=== PATIENT | male | born 1930 | race Caucasian/White ===

== ENCOUNTER → 2018-02-14 | Outpatient (CLI) | payer MEDICARE ==
[~2018-02-14] MED LIST: ALL300 PO; ASPI-1471 PO; CARV25TA78 PO; FURO-45 PO; LISI-362 PO; TAMS0.4C70 PO
--- NOTE | 2018-02-14 12:58 | RADIOLOGY IMAGING REPORT ---
[place] [facility] [place] Aamir Dominguez : 1930 MR: [id number] V: [id number] EXAM DATE: ORDERING PHYSICIAN: MIKAYLA STRAUSS TECHNOLOGIST: Location: [facility] Patient: Aamir Dominguez : 1930 Visit/Account:[id number] Date of Sevice: 02/14/2018 KIDNEYS EXAMINATION: Renal ultrasound. History: History of renal cysts bilaterally, incomplete bladder emptying COMPARISON STUDIES: February 02, 2017 FINDINGS: Kidneys: Right kidney- 11.5 x 6.8 x 5.2 cm Left kidney- 10.8 x 4.6 x 5.1 cm Uniform and symmetric blood flow in each kidney by Doppler ultrasound. Hydronephrosis: none Is 1.4 cm cyst upper pole the right kidney. There is a 2.6 cm cyst lateral aspect mid pole of the le ft kidney and a 2.3 cm cyst upper pole the left kidney Bladder: Prevoid volume 520 mL. Postvoid volume 448 mL. Bilateral ureteral jets are present Abdominal aorta and IVC: Aorta and IVC are patent by Doppler ultrasound. IMPRESSION: Only the 1.4 cm upper pole cyst right kidney is seen. The other two right renal cysts are no longer identified There is a 2.6 cm cyst lateral aspect mid pole the left kidney in addition to a 2.3 cm upper pole cys t Large postvoid bladder residual 440 mL. Report Dictated By: Saida Lemus MD at 02/14/2018 12:51 PM Report E-Signed By: Saida Lemus MD at 02/14/2018 12:54 PM WSN:[id number]
== END ==
LOC: US 04:18
PROVIDERS: ATTEND Urology
DX: N28.1 Cyst of kidney, acquired (principal); R33.9 Retention of urine, unspecified
CPT/HCPCS: 36415; 76705; 82565

== ENCOUNTER 2018-05-02 19:30 | Emergency (ER) | payer MEDICARE ==
--- NOTE | 2018-05-02 19:33 | ER Report ---
History and Physical Time Seen By MD: 19:32 HPI/ROS CHIEF COMPLAINT: Shortness of breath HISTORY OF PRESENT ILLNESS: 87-year-old male with a history of a bovine mitral valve replacement in 2009. Patient more recently has been seen with URI symptoms since last Tuesday. He was started on doxycycline and Zithromax for upper respiratory symptoms. He is continuing to cough and feel bad. He's had no chest pain. He notes shortness of breath and a cough of clear sputum. He notes some leg swelling. REVIEW OF SYSTEMS: Respiratory: As above Cardiovascular: No chest pain, no palpitations. Gastrointestinal: No vomiting, no abdominal pain. Musculoskeletal: No back pain. Allergies: Coded Allergies: No Known Drug Allergies (Unverified , 12/12/16) Home Meds Active Scripts Prednisone 10 Mg Tab (PREDNISONE 10 MG TAB) 10 Mg Tablet, 10 MG PO QDAY Y for REDUCE LUNG INFLAMMATION, #9 2 tabs daily for 3 dayS 1 tab daily for 3 days Prov:NARGIS CANSECO DO 05/02/18 Levofloxacin 500 Mg Tab (LEVAQUIN 500 MG TAB) 500 Mg Tablet, 500 MG PO DAILY for INFECTION, #6 TAB Prov:NARGIS CANSECO DO 05/02/18 Reported Medications L.acidoph & Paracasei,B.lactis (Probiotic) 1 Each Capsule 05/02/18 Sulfasalazine (SULFASALAZINE) 500 Mg Tablet, 500 MG PO 05/02/18 Omeprazole (OMEPRAZOLE) 20 Mg Capsule.dr, 1 CAP PO QDAY, CAP 05/02/18 Lisinopril (LISINOPRIL) 20 Mg Tablet, 20 MG PO QDAY, TAB 05/02/18 Furosemide (FUROSEMIDE) 20 Mg Tablet, 1 TAB PO DAILY, TAB 12/12/16 Aspirin (ASPIR 81) 81 Mg Tablet.dr, 81 MG PO QDAY, TAB 12/12/16 Allopurinol (ZYLOPRIM 300 MG TAB (OR EQUIV)) 300 Mg Tab, 300 MG PO QDAY, TAB 12/12/16 Carvedilol (CARVEDILOL) 25 Mg Tablet, 25 MG PO BID, #10 TAB 12/12/16 Tamsulosin Hcl (TAMSULOSIN HCL) 0.4 Mg Cap.er.24h, 0.4 MG PO DAILY, CAP 12/12/16 Discontinued Reported Medications Lisinopril (LISINOPRIL) 10 Mg Tablet, 10 MG PO QDAY, TAB 12/12/16 Reviewed Nurses Notes: Yes Old Medical Records Reviewed: Yes Constitutional Vital Sign - Last 24 Hours 05/02/18 05/02/18 05/02/18 05/02/18 19:38 19:39 19:45 19:57 Temp 98.9 Pulse 81 Resp 18 7 B/P (MAP) 113/70 (84) 113/70 Pulse Ox 96 95 94 O2 Delivery Room Air Room Air 05/02/18 05/02/18 05/02/18 05/02/18 19:57 20:00 20:15 20:30 Pulse 73 75 76 79 Resp 22 31 13 14 B/P (MAP) 101/59 (73) 109/54 (72) Pulse Ox 94 94 05/02/18 05/02/18 05/02/18 05/02/18 20:45 21:15 21:20 21:30 Pulse 75 76 75 Resp 7 22 23 B/P (MAP) 113/47 (69) Pulse Ox 95 97 91 05/02/18 05/02/18 05/02/18 05/02/18 21:35 21:50 22:00 22:05 Pulse 75 74 75 Resp 33 21 21 B/P (MAP) 104/43 (63) Pulse Ox 96 95 98 05/02/18 05/02/18 05/02/18 05/02/18 22:20 22:25 22:30 22:40 Pulse 77 74 ??? Resp 30 24 47 B/P (MAP) 113/49 (70) Pulse Ox 96 96 05/02/18 22:55 Pulse ??? Physical Exam General Appearance: The patient is alert, has no immediate need for airway protection and no current signs of toxicity. Vital signs stable, afebrile, pulse ox normal, no acute distress, skin warm, dry, pink HEENT: Pupils equal and round no injection. TMs normal, oropharynx with mild erythema, no exudate or petechiae, mucous members are moist Respiratory: Chest is non tender, lungs are clear to auscultation. Faint rhonchi in right lower base Cardiac: regular rate and rhythm Gastrointestinal: Abdomen is soft and non tender, no masses, bowel sounds normal. Musculoskeletal: Neck: Neck is supple and non tender. No JVD, no lymphadenopathy Extremities have full range of motion and are non tender. 2+ edema bilateral extremities to upper tibia Skin: No rashes or lesions. DIFFERENTIAL DIAGNOSIS: After history and physical exam differential diagnosis was considered for shortness of breath including but not limited to pulmonary infectious process, COPD, asthma, pulmonary embolus and congestive heart failure. Medical Decision Making Data Points Result Diagram: 05/02/18193905/02/181939 Laboratory Hematology Test 05/02/18 19:40 05/02/18 20:05 Red Blood Count 2.81 M/uL (4.00-5.60) Mean Corpuscular Volume 94.3 fL (80.0-96.0) Mean Corpuscular Hemoglobin 33.2 pg (26.0-33.0) Mean Corpuscular Hemoglobin Concent 35.2 g/dL (32.0-36.0) Red Cell Distribution Width 13.1 % (11.5-14.5) Mean Platelet Volume 7.3 fL (7.2-11.1) Neutrophils (%) (Auto) 85.8 % (39.4-72.5) Lymphocytes (%) (Auto) 4.7 % (17.6-49.6) Monocytes (%) (Auto) 7.8 % (4.1-12.4) Eosinophils (%) (Auto) 1.4 % (0.4-6.7) Basophils (%) (Auto) 0.3 % (0.3-1.4) Nucleated RBC Relative Count (auto) 0.0 /100WBC Neutrophils # (Auto) 14.5 K/uL (2.0-7.4) Lymphocytes # (Auto) 0.8 K/uL (1.3-3.6) Monocytes # (Auto) 1.3 K/uL (0.3-1.0) Eosinophils # (Auto) 0.2 K/uL (0.0-0.5) Basophils # (Auto) 0.0 K/uL (0.0-0.1) Nucleated RBC Absolute Count (auto) 0.00 K/uL Prothrombin Time 16.7 seconds (12.0-14.4) Prothromb Time International Ratio 1.34 Activated Partial Thromboplast Time 39 seconds (23-35) D-Dimer Quantitative (PE/DVT) 2.73 ug/ml (0-0.50) Sodium Level 136 mmol/L (137-145) Potassium Level 4.1 mmol/L (3.5-5.0) Chloride Level 102 mmol/L (98-107) Carbon Dioxide Level 24 mmol/L (22-30) Blood Urea Nitrogen 17 mg/dl (9-21) Creatinine 1.10 mg/dl (0.66-1.25) Glomerular Filtration Rate Calc > 60.0 Random Glucose 102 mg/dl (75-110) Lactate 1.0 mmol/L (0.7-2.1) Calcium Level 8.7 mg/dl (8.4-10.2) Total Bilirubin 0.6 mg/dl (0.2-1.3) Aspartate Amino Transf (AST/SGOT) 17 U/L (0-35) Alanine Aminotransferase (ALT/SGPT) 22 U/L (0-56) Alkaline Phosphatase 102 U/L (0-126) Troponin I < 0.012 ng/ml B-Type Natriuretic Peptide 370 pg/ml (0-100) Total Protein 5.3 g/dl (6.3-8.2) Albumin 2.6 g/dl (3.5-5.0) Stool Occult Blood (IFOB) Positive (NEGATIVE) Chemistry Test 05/02/18 19:40 05/02/18 20:05 White Blood Count 16.9 k/uL (4.5-11.0) Red Blood Count 2.81 M/uL (4.00-5.60) Hemoglobin 9.3 g/dL (14.0-18.0) Hematocrit 26.5 % (42.0-52.0) Mean Corpuscular Volume 94.3 fL (80.0-96.0) Mean Corpuscular Hemoglobin 33.2 pg (26.0-33.0) Mean Corpuscular Hemoglobin Concent 35.2 g/dL (32.0-36.0) Red Cell Distribution Width 13.1 % (11.5-14.5) Platelet Count 313 K/uL (150-450) Mean Platelet Volume 7.3 fL (7.2-11.1) Neutrophils (%) (Auto) 85.8 % (39.4-72.5) Lymphocytes (%) (Auto) 4.7 % (17.6-49.6) Monocytes (%) (Auto) 7.8 % (4.1-12.4) Eosinophils (%) (Auto) 1.4 % (0.4-6.7) Basophils (%) (Auto) 0.3 % (0.3-1.4) Nucleated RBC Relative Count (auto) 0.0 /100WBC Neutrophils # (Auto) 14.5 K/uL (2.0-7.4) Lymphocytes # (Auto) 0.8 K/uL (1.3-3.6) Monocytes # (Auto) 1.3 K/uL (0.3-1.0) Eosinophils # (Auto) 0.2 K/uL (0.0-0.5) Basophils # (Auto) 0.0 K/uL (0.0-0.1) Nucleated RBC Absolute Count (auto) 0.00 K/uL Prothrombin Time 16.7 seconds (12.0-14.4) Prothromb Time International Ratio 1.34 Activated Partial Thromboplast Time 39 seconds (23-35) D-Dimer Quantitative (PE/DVT) 2.73 ug/ml (0-0.50) Glomerular Filtration Rate Calc > 60.0 Lactate 1.0 mmol/L (0.7-2.1) Calcium Level 8.7 mg/dl (8.4-10.2) Total Bilirubin 0.6 mg/dl (0.2-1.3) Aspartate Amino Transf (AST/SGOT) 17 U/L (0-35) Alanine Aminotransferase (ALT/SGPT) 22 U/L (0-56) Alkaline Phosphatase 102 U/L (0-126) Troponin I < 0.012 ng/ml B-Type Natriuretic Peptide 370 pg/ml (0-100) Total Protein 5.3 g/dl (6.3-8.2) Albumin 2.6 g/dl (3.5-5.0) Stool Occult Blood (IFOB) Positive (NEGATIVE) Coagulation Test 05/02/18 19:40 Prothrombin Time 16.7 seconds Prothromb Time International Ratio 1.34 Activated Partial Thromboplast Time 39 seconds D-Dimer Quantitative (PE/DVT) 2.73 ug/ml EKG/Imaging EKG Interpretation 12 lead EK Rhythm: Demand pacemaker rhythm at 74 bpm [place]: Right axis deviation QRS: Wide QRS consistent with pacemaker ST segments: normal, no old EKGs for comparison Imaging Results: CT scan of the CTA pulmonary angiogram was obtained. The results of the study are EXAMINATION: CTA of the chest with IV contrast HISTORY: Dyspnea. TECHNIQUE: Pulmonary embolus protocol - Thin axial CT images of the chest were obtained with IV contrast during maximal pulmonary arterial opacification. Reconstruction of the source data includes multiplanar 2D coronal and sagittal reconstructed images, and 3D coronal and sagittal MIP images. Addressograph Operator images have been stored on PACS. One of the following dose optimization techniques was utilized in the performance of this exam: Automated exposure control; adjustment of the mA and/ or kV according to the patient's size; or use of an iterative reconstruction technique. Specific details can be referenced in the facility's radiology CT exam operational policy. Contrast: 75 mL of IV Isovue-370. COMPARISON: None. FINDINGS: Pulmonary arteries: The pulmonary arteries are well opacified, without suspicious filling defect. Heart, aorta, and great vessels: The thoracic aorta is poorly opacified but normal in caliber. Moderate cardiac enlargement. Sternotomy with surgical changes of CABG. Prior mitral valve replacement. No pericardial effusion. ICD, with lead tips in the RA, RV, and coronary vein. Lungs and pleura: There is complete consolidation of the right middle lobe, with a rounded masslike component laterally measuring approximately 7 x 6 cm. There is distortion and truncation of the adjacent pulmonary artery branches in this region, with appearance concerning for an underlying parenchymal mass. There is complete opacification of the right middle lobe bronchi, along with partial opacification of lower lobe segmental bronchi. Small pleural effusion along the posterior right lung base with mild adjacent atelectasis. Trace layering left pleural fluid with mild atelectasis in the posterior left lung. Small region of patchy groundglass opacity in the left upper lobe laterally and posteriorly. Mediastinum and luis miguel: There are scattered subcentimeter mediastinal lymph nodes. No discrete enlarged mediastinal or hilar lymph nodes. Visualized upper abdomen: Cholecystectomy. Chest wall: Negative. Bones: No acute osseous findings or suspicious focal osseous lesions. Multilevel degenerative changes throughout the spine. IMPRESSION: 1. No evidence of pulmonary embolism. 2. Complete consolidation of the right middle lobe. There is a rounded masslike component laterally measuring up to 7 cm, concerning for an underlying pulmonary mass. There is opacification of the right middle lobe bronchi with distortion of adjacent pulmonary artery branches in this region. 3. Small right pleural effusion with adjacent atelectasis. 4. Small focus of patchy groundglass opacity in the left upper lobe may be infectious or inflammatory. Trace left pleural fluid. The study was read by the radiologist. I viewed the images myself on the PACS system. ED Course/Re-evaluation Clinical Indication for ER IV: IV Access ED Course Patient was admitted to an examination room. H&P was done. The differential diagnoses was considered. On clinical examination. Patient has productive cough. On clinical examination. Patient has findings consistent with pneumonia. His vital signs were stable. He is afebrile. He diagnostic CTA pulmonary angiogram shows an infiltrate and a large mass causing obstruction of the bronchials. Patient be switched to Levaquin and given a prednisone taper. He is advised to take Mucinex to treat his pneumonia. He is also anemic and has Hemoccult positive stools. Patient will need further diagnostic evaluation. Patient will likely need to see pulmonology and need a biopsy of his lung mask for treatment with chemotherapy. Decision to Disposition Date: May 02, 2018 Decision to Disposition Time: 19:58 Depart Departure Latest Vital Signs Vital Signs Date Time Temp Pulse Resp B/P (MAP) Pulse Ox O2 Delivery O2 Flow Rate FiO2 05/02/18 22:55 ??? 05/02/18 22:40 47 05/02/18 22:30 113/49 (70) 05/02/18 22:25 96 05/02/18 19:57 Room Air 05/02/18 19:39 98.9 Impression: Primary Impression: Right middle lobe pneumonia Additional Impressions: Mass of right lung Anemia Occult blood positive stool Condition: Improved Disposition: HOME OR SELF-CARE Referrals: UMAIR RENNER MD New Scripts Prednisone 10 Mg Tab (PREDNISONE 10 MG TAB) 10 Mg Tablet 10 MG PO QDAY Y for REDUCE LUNG INFLAMMATION, #9 2 tabs daily for 3 dayS 1 tab daily for 3 days Prov: NARGIS CANSECO DO 05/02/18 Levofloxacin 500 Mg Tab (LEVAQUIN 500 MG TAB) 500 Mg Tablet 500 MG PO DAILY for INFECTION, #6 TAB Prov: NARGIS CANSECO DO 05/02/18 Patient Instructions: Bacterial Pneumonia (ED) Additional Instructions: Take Mucinex DM twice daily Follow-up with your primary care for referral to oncology They will need to refer you for thin needle biopsy of your lung mass Dr. Renner is a cancer specialist here at [facility] and permission is provided Problem Qualifiers Primary Impression: Right middle lobe pneumonia Pneumonia type: due to unspecified organism Qualified Codes: J18.1 - Lobar pneumonia, unspecified organism Additional Impressions: Anemia Anemia type: unspecified type Qualified Codes: D64.9 - Anemia, unspecified NARGIS CANSECO DO May 02, 2018 19:33
[2018-05-02] MEDS ORDERED: ALBUTEROL/IPRATROPIUM 3 ML NEB NEB ONE (19:40)
[2018-05-02 19:55] LABS: PLATELET COUNT, AUTOMATED 313 K/uL (150-450)
--- NOTE | 2018-05-02 19:57 | EKG ---
[place] [facility] [place] ANTONIO LITTLE : [id number] MR: [id number] V: [id number] EXAM DATE: ORDERING PHYSICIAN: NARGIS CANSECO TECHNOLOGIST: MICAELA Grayson Reason : DYSPNEA Blood Pressure : / mmHG Vent. Rate : 074 BPM Atrial Rate : 074 BPM P-R Int : 184 ms QRS Dur : 122 ms QT Int : 432 ms P-R-T Axes : 000 255 054 degrees QTc Int : 479 ms Ventricular paced rhythm No previous ECGs available Confirmed by RAMONA ALEJO ([id number]) on 05/02/2018 10:03:56 PM Referred By: Confirmed By:RAMONA ALEJO
[2018-05-02] MEDS ORDERED: L.AC1CAP6 (19:58)
[2018-05-02] MEDS ORDERED: OMEP-125 PO (19:58)
[2018-05-02] MEDS ORDERED: LISI20TA29 PO (19:58)
[2018-05-02] MEDS ORDERED: SULF500T48 PO (19:58)
[2018-05-02 20:07] LABS: INR 1.34
[2018-05-02] MEDS ORDERED: IOPAMIDOL 76% 75 ML INFUS BTL 75 ML ONE (20:54)
[2018-05-02] MEDS ORDERED: NS 0.9% 25 ML BAG 50 ML ONE (20:54)
--- NOTE | 2018-05-02 21:41 | RADIOLOGY IMAGING REPORT ---
[place] [facility] [place] Aamir Dominguez : 1930 MR: [id number] V: [id number] EXAM DATE: ORDERING PHYSICIAN: NARGIS CANSECO TECHNOLOGIST: Location: [facility] Patient: Aamir Dominguez : 1930 Visit/Account:[id number] Date of Sevice: 05/02/2018 EXAMINATION: CTA of the chest with IV contrast HISTORY: Dyspnea. TECHNIQUE: Pulmonary embolus protocol - Thin axial CT images of the chest were obtained with IV con trast during maximal pulmonary arterial opacification. Reconstruction of the source data includes mul tiplanar 2D coronal and sagittal reconstructed images, and 3D coronal and sagittal MIP images. Repres entative images have been stored on PACS. One of the following dose optimization techniques was utilized in the performance of this exam: Autom ated exposure control; adjustment of the mA and/or kV according to the patient's size; or use of an i terative reconstruction technique. Specific details can be referenced in the facility's radiology C T exam operational policy. Contrast: 75 mL of IV Isovue-370. COMPARISON: None. FINDINGS: Pulmonary arteries: The pulmonary arteries are well opacified, without suspicious filling defect. Heart, aorta, and great vessels: The thoracic aorta is poorly opacified but normal in caliber. Moder ate cardiac enlargement. Sternotomy with surgical changes of CABG. Prior mitral valve replacement. No pericardial effusion. ICD, with lead tips in the RA, RV, and coronary vein. Lungs and pleura: There is complete consolidation of the right middle lobe, with a rounded masslike component laterally measuring approximately 7 x 6 cm. There is distortion and truncation of the adjac ent pulmonary artery branches in this region, with appearance concerning for an underlying parenchyma l mass. There is complete opacification of the right middle lobe bronchi, along with partial opacific ation of lower lobe segmental bronchi. Small pleural effusion along the posterior right lung base with mild adjacent atelectasis. Trace laye ring left pleural fluid with mild atelectasis in the posterior left lung. Small region of patchy grou ndglass opacity in the left upper lobe laterally and posteriorly. Mediastinum and luis miguel: There are scattered subcentimeter mediastinal lymph nodes. No discrete enlarge d mediastinal or hilar lymph nodes. Visualized upper abdomen: Cholecystectomy. Chest wall: Negative. Bones: No acute osseous findings or suspicious focal osseous lesions. Multilevel degenerative change s throughout the spine. IMPRESSION: 1. No evidence of pulmonary embolism. 2. Complete consolidation of the right middle lobe. There is a rounded masslike component laterally m easuring up to 7 cm, concerning for an underlying pulmonary mass. There is opacification of the right middle lobe bronchi with distortion of adjacent pulmonary artery branches in this region. 3. Small right pleural effusion with adjacent atelectasis. 4. Small focus of patchy groundglass opacity in the left upper lobe may be infectious or inflammatory . Trace left pleural fluid. Findings were discussed with NARGIS CANSECO at 05/02/2018 9:37 PM. Report Dictated By: Edouard Lord MD at 05/02/2018 9:25 PM Report E-Signed By: Edouard Lord MD at 05/02/2018 9:37 PM WSN:[id number]
[2018-05-02] MEDS ORDERED: methylPREDNIS SUCC 125 MG/2ML IVP ONE (22:00)
[2018-05-02] MEDS ORDERED: LEVOFLOXACIN 500 MG TAB PO ONE (22:00)
[2018-05-02] MEDS ORDERED: cefTRIAXone 1 GM VIAL IVP ONE (22:00)
[2018-05-02] MEDS ORDERED: LEVO-85 PO (22:04)
[2018-05-02] MEDS ORDERED: PRED-1 PO (22:04)
[2018-05-02 22:30] VITALS: BP 113/49
== END 2018-05-02 22:50 | disposition home or self-care (01) ==
LOC: ER 20:01
DX: J18.1 Lobar pneumonia, unspecified organism (principal); R91.8 Other nonspecific abnormal finding of lung field; D64.9 Anemia, unspecified; R19.5 Other fecal abnormalities
CPT/HCPCS: 36415; 71275; 82274; 83605; 83880; 84484; 85025; 85379; 85610; 85730; 87040; 93005; 94640; 96374; 96375; 99284; A9270; J0696; J2930; J7620; Q9967; 82040; 82247; 82310; 82374; 82435; 82565; 82947; 84075; 84132; 84155; 84295; 84450; 84460; 84520

== ENCOUNTER 2018-05-19 14:40 | Outpatient (RCR) | payer MEDICARE ==
[~2018-05-19 14:40] MED LIST changes: +L.AC1CAP6; +LEVO-85 PO; +LISI20TA29 PO; +OMEP-125 PO; +PRED-1 PO; +SULF500T48 PO
[2018-05-19 15:12] VITALS: BP 108/57
--- NOTE | 2018-05-19 17:32 | ONCOLOGY CONSULTATION ---
EVENT DATE: May 19, 2018 REFERRING PHYSICIAN Oscar Espinoza DO REASON FOR CONSULTATION Evaluation and management of right middle lobe lung mass. ONCOLOGY HISTORY Patient is an 87-year-old male ex-smoker. He quit smoking 48 hours ago after 25 years of smoking one pack a day. Patient presented with pneumonia in [place], treated with antibiotics for about two weeks, but he continues to have cough and shortness of breath which got worse, so the patient came to the emergency room of [facility] in [place]. He had a CTA chest done on May 12, 2018 which showed complete consolidation of the right middle lobe with a rounded mass-like component 7 x 6 cm with scattered less than 1 cm mediastinal lymph nodes. PAST MEDICAL HISTORY 1. Hypertension. 2. Mitral valve replacement in 2008. 3. Stroke. 4. Congestive heart failure. PAST SURGICAL HISTORY 1. Cholecystectomy. 2. Back surgery. 3. Mitral valve replacement. 4. Tonsillectomy. FAMILY HISTORY Paternal aunt and maternal aunt both had breast cancer. Maternal grandmother had breast cancer. Sister had esophageal cancer. SOCIAL HISTORY Patient is with four children. He is a retired rancher. He quit smoking 48 years ago after one pack a day for 25 years. He drinks wine daily with ice. Denies any abuse of illicit drugs. CURRENT MEDICATIONS 1. Probiotic daily. 2. Sulfasalazine 500 mg daily. 3. Lisinopril 20 mg daily. 4. Lasix 20 mg daily. 5. Aspirin 81 mg daily. 6. Allopurinol 300 mg daily. 7. Carvedilol 25 mg twice daily. 8. Tamsulosin 0.4 mg daily. ALLERGIES No known drug allergies. REVIEW OF SYSTEMS CONSTITUTIONAL: The patient has loss of appetite. No fever, chills or sweating. No recent infection. HEENT: Ears: No tinnitus or hearing problem. Nose: No nasal discharge or epistaxis. Throat: No sore throat or mouth ulcers. Eyes: No diplopia or visual changes. RESPIRATORY: He has cough with expectoration and exertional shortness of breath. CARDIOVASCULAR: No chest pain, orthopnea, or paroxysmal nocturnal dyspnea (PND) . He has swelling of the ankles. No palpitations. GASTROINTESTINAL: No nausea or vomiting. No diarrhea or constipation. No change in bowel movements. No heartburn or swallowing difficulties. No abdominal pain. No jaundice. No hematemesis, melena or rectal bleeding. GENITOURINARY: No hematuria or dysuria. He uses catheter. MUSCULOSKELETAL: No pain in the muscles, joints or bones. NEUROLOGICAL: No tingling or numbness in the hands or feet. No headaches or convulsions. HEMATOLOGIC/LYMPHATIC: No bleeding or easy bruising. He is weak, tired and fatigued. No enlarged lymph nodes. SKIN: No skin rash or lumps. PSYCHIATRIC: No anxiety or depression. PHYSICAL EXAMINATION GENERAL: Looks stable. Well-developed, well-nourished, and in no acute distress. VITAL SIGNS: Blood pressure 108/57, pulse 64 per minute, respirations 16 per minute, temperature 97.1, pulse ox 96% on room air. HEENT: Head: Atraumatic. No sinus tenderness to palpation. Eyes: No icterus or conjunctivitis. Mouth and Throat: No oral thrush or mucositis. NECK: Supple. No cervical or supraclavicular lymphadenopathy. LUNGS: There are diminished breath sounds over the right base. HEART: Regular rate and rhythm. No gallops, murmurs, clicks or rubs. ABDOMEN: Soft and lax. No tenderness. No hepatosplenomegaly. No masses. EXTREMITIES: No cyanosis, clubbing or edema. LYMPHATICS: No peripheral lymphadenopathy. NEUROLOGICAL: Conscious, alert and oriented times three. No focal motor or sensory deficits. PSYCHIATRIC: Mood and affect appear normal. SKIN: No skin rash, bruise or purpuric eruption. ASSESSMENT 1. Right middle lobe mass 7 x 6 cm with scattered less than 1 cm mediastinal lymph nodes highly suspicious for lung cancer with his previous history of smoking in the past with about 25 pack-years of tobacco abuse. I am planning to proceed with CT-guided biopsy of the right middle lobe mass, so I am planning to check his PT, PTT and CBC and CMP prior to the procedure. If the procedure is positive for lung cancer, then I am planning to do staging workup including PET/CT scan and MRI of the brain. Further evaluation and management will depend on the stage. Patient is an 87-year-old and it seems to me he is not a surgical candidate, and if he has stage I or II lung cancer then primary radiation therapy will be the plan of management. If he will have stage III then chemoradiation will be the plan of management. If he has stage IV then chemotherapy will be the plan of management. I spent a long time with the patient and his daughter explaining the plan of management and they are agreeable with such a plan. 2. History of mitral valve replacement in 2008. 3. History of stroke. PLAN 1. CT-guided biopsy of the right middle lobe mass. 2. CBC, chem panel, PT, PTT prior to his procedure. 3. Consider PET/CT scan and MRI of the brain for staging workup. 4. Patient to return after the above for further evaluation and management. 5. Patient is to contact us for any new concern or complaints. ADONIS
== END 2018-08-16 ==
LOC: ONC 14:40
PROVIDERS: ATTEND Internal Medicine Hematology
DX: R91.8 Other nonspecific abnormal finding of lung field (principal); I10 Essential (primary) hypertension; I50.9 Heart failure, unspecified; Z87.891 Personal history of nicotine dependence; Z95.2 Presence of prosthetic heart valve; Z86.73 Personal history of transient ischemic attack (TIA), and cerebral infarction without residual deficits
CPT/HCPCS: 99213

== ENCOUNTER → 2019-01-17 | Outpatient (CLI) | payer MEDICARE ==
--- NOTE | 2019-01-17 14:00 | RADIOLOGY IMAGING REPORT ---
FACILITY: [facility] [place] PATIENT NAME: Aamir Dominguez : 1930 MR: [id number] V: [id number] EXAM DATE: ORDERING PHYSICIAN: GALEN REICH TECHNOLOGIST: Location: [facility] Patient: Aamir Dominguez : 1930 Visit/Account:[id number] Date of Sevice: 01/17/2019 CT CHEST W/O CONTRAST History: Pulmonary nodule TECHNIQUE: Contiguous axial images were performed through the chest to the level of the adrenal gla nds. No IV contrast was administered. Coronal and sagittal reformatting was also performed.Dose Lower ing Technique One of the following dose optimization techniques was utilized in the performance of this exam: Autom ated exposure control; adjustment of the mA and/or kV according to the patient's size; or use of an i terative reconstruction technique. Specific details can be referenced in the facility's radiology C T exam operational policy. COMPARISON STUDIES: CTA chest May 02, 2018. Lungs / Pleura: The previously noted complete consolidation of the right middle lobe with a rounded masslike component is much smaller with only several thick bands of consolidation in this location t he right middle lobe bronchi now appear aerated although there is some consolidation of the distal br onchioles in the lateral right middle lobe the right lower lobe bronchi appear aerated. Previous see n noted pleural effusions have resolved as has the left basilar atelectasis and small [place] in the posterior lateral left upper lobe also has resolved Mediastinum/nodes: negative. Heart and vessels: Moderate cardiomegaly. 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 ICD with leads as previously described Musculoskeletal / Body wall: . 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 IMPRESSION: Producing noted large masslike area in the right middle lobe is much smaller with only several thick band of consolidation now seen in this location. The right middle lobe and right lower lobe bronchi now appear aerated. There is some residual consolidation of the distal bronchioles in the lateral ri ght middle lobe. Interval resolution of the small pleural effusions and left basilar atelectasis Additional chronic findings as described Report Dictated By: Saida Lemus MD at 01/17/2019 12:11 PM Report E-Signed By: Saida Lemus MD at 01/17/2019 1:56 PM WSN:[email or web address]
== END ==
LOC: CT 00:50
PROVIDERS: ATTEND Internal Medicine
DX: R91.1 Solitary pulmonary nodule (principal)
CPT/HCPCS: 71250

== ENCOUNTER → 2019-05-01 | Outpatient (CLI) | payer MEDICARE ==
[~2019-05-01] MED LIST changes: -OMEP-125 PO; +OMEP-126 PO
--- NOTE | 2019-05-01 13:56 | RADIOLOGY IMAGING REPORT ---
FACILITY: [facility] PATIENT NAME: Aamir Dominguez : 1930 MR: [id number] V: [id number] EXAM DATE: ORDERING PHYSICIAN: MIKAYLA STRAUSS TECHNOLOGIST: Location: [facility] Patient: Aamir Dominguez : 1930 Visit/Account:[id number] Date of Sevice: 05/01/2019 KIDNEYS HISTORY: History of UTIs COMPARISON: 02/14/2018 FINDINGS: Kidneys: Right kidney- 10.3 x 6.4 x 5.8 cm with normal parenchymal thickness and echogenicity. Two small simp le cysts are present within the upper pole, the largest measures 1.8 cm. Left kidney- 9.3 x 5.1 x 5.5 cm with normal parenchymal thickness and echogenicity. Two simple cysts are present, one within the upper pole and the other within the lower pole. The lower pole cyst is the largest measuring 2.5 cm Uniform and symmetric blood flow in each kidney by Doppler ultrasound. Hydronephrosis: None. Bladder: Morphologically unremarkable. Bilateral ureteric jets visualized. There is a large post vo id residual of 433 mL. Abdominal aorta and IVC: Patent by Doppler ultrasound. IMPRESSION: Persistent large post void residual, otherwise renal ultrasound is within normal limits Report Dictated By: Drew Kothari at 05/01/2019 1:41 PM Report E-Signed By: Drew Kothari at 05/01/2019 1:50 PM WSN:[email or web address]
== END ==
LOC: US 00:46
PROVIDERS: ATTEND Urology
DX: R33.8 Other retention of urine (principal); N39.0 Urinary tract infection, site not specified
CPT/HCPCS: 76705